=== PATIENT | female | born 1965 | race Caucasian/White ===

== ENCOUNTER 2019-12-27 12:52 | Outpatient (REF) | payer OTHER, SELFPAY ==
--- NOTE | 2019-12-27 | MM_ITS ---
EXAMINATION: MM SCREENING DIGITAL BREAST TOMOSYNTHESIS, BILATERAL CLINICAL INFORMATION: Screening. Asymptomatic. Family history breast cancer maternal grandmother. The lifetime risk of breast cancer based on the Tyrer-Cuzick Model is 14%. COMPARISON: Mammography: 12/18/2018, 07/08/2017, 06/07/2016 TECHNIQUE: Digital breast tomosynthesis is performed in both the craniocaudal and mediolateral oblique views along with computer-aided detection (CAD). Synthesized 2D images are generated from the tomosynthesis. FINDINGS: There are scattered areas of fibroglandular density (ACR BI-RADS breast composition Category b). There are no significant masses, abnormal calcifications, or other abnormalities. The axilla and skin contours are unremarkable. MM/MM tomosynthesis screening BI IMPRESSION: No significant changes from prior exams. ASSESSMENT: BI-RADS 1: Negative RECOMMENDATION: Routine annual mammography screening. This patient's information was entered into a reminder system with a target due date for their next mammogram.
== END 2019-12-27 12:53 | disposition home or self-care (01) ==
LOC: HO.MAMMO 12:52
PROVIDERS: Visit Provider Obstetrics & Gynecology
DX: Z12.31 Encounter for screening mammogram for malignant neoplasm of breast (principal)
CPT/HCPCS: 77063; 77067

== ENCOUNTER 2021-02-26 11:26 | Outpatient (REF) | payer OTHER, SELFPAY ==
--- NOTE | ~2021-02-26 | MM_ITS ---
EXAMINATION: MM SCREENING DIGITAL BREAST TOMOSYNTHESIS, BILATERAL CLINICAL INFORMATION: Screening. Asymptomatic. The lifetime risk of breast cancer based on the Tyrer-Cuzick Model is 16%. COMPARISON: Mammography: 12/27/2019, 12/18/2018, 07/08/2017 TECHNIQUE: Digital breast tomosynthesis is performed in both the craniocaudal and mediolateral oblique views along with computer-aided detection (CAD). Synthesized 2D images are generated from the tomosynthesis. FINDINGS: There are scattered areas of fibroglandular density (ACR BI-RADS breast composition Category b). There are no significant masses, abnormal calcifications, or other abnormalities. Parenchymal pattern is similar to prior exams. No significant changes. MM/MM tomosynthesis screening BI IMPRESSION: No mammographic evidence of malignancy. ASSESSMENT: BI-RADS 1: Negative RECOMMENDATION: Routine annual mammography screening. This patient's information was entered into a reminder system with a target due date for their next mammogram.
== END 2021-02-26 11:27 | disposition home or self-care (01) ==
LOC: HO.MAMMO 11:26
PROVIDERS: Visit Provider Obstetrics & Gynecology
DX: Z12.31 Encounter for screening mammogram for malignant neoplasm of breast (principal)
CPT/HCPCS: 77063; 77067

== ENCOUNTER 2022-03-03 11:25 | Outpatient (REF) | payer OTHER, SELFPAY ==
--- NOTE | ~2022-03-03 | MM_ITS ---
EXAMINATION: MM SCREENING DIGITAL BREAST TOMOSYNTHESIS, BILATERAL CLINICAL INFORMATION: Screening. Asymptomatic. The lifetime risk of breast cancer based on the Tyrer-Cuzick Model is 15%. COMPARISON: Mammography: 02/26/2021, 12/27/2019, 12/18/2018 TECHNIQUE: Digital breast tomosynthesis is performed in both the craniocaudal and mediolateral oblique views along with computer-aided detection (CAD). Synthesized 2D images are generated from the tomosynthesis. FINDINGS: There are scattered areas of fibroglandular density (ACR BI-RADS breast composition Category b). There are no significant masses, abnormal calcifications, or other abnormalities. Parenchymal pattern is similar to prior studies. There is no developing density or architectural abnormality. The axilla and skin contours are unremarkable. No significant changes. MM/MM tomosynthesis screening BI IMPRESSION: No mammographic evidence of malignancy. ASSESSMENT: BI-RADS 1: Negative RECOMMENDATION: Routine annual mammography screening. This patient's information was entered into a reminder system with a target due date for their next mammogram.
== END 2022-03-03 11:26 | disposition home or self-care (01) ==
LOC: HO.MAMMO 11:25
PROVIDERS: Visit Provider Obstetrics & Gynecology
DX: Z12.31 Encounter for screening mammogram for malignant neoplasm of breast (principal)
CPT/HCPCS: 77063; 77067

== ENCOUNTER 2023-03-04 11:40 | Outpatient (REF) | payer OTHER, SELFPAY ==
--- NOTE | ~2023-03-04 | MM_ITS ---
EXAMINATION: MM SCREENING DIGITAL BREAST TOMOSYNTHESIS, BILATERAL CLINICAL INFORMATION: Screening. Asymptomatic. COMPARISON: Mammography: 03/03/2022, 02/26/2021, 12/27/2019, 12/18/2018, dating back to 2014. TECHNIQUE: Digital breast tomosynthesis is performed in both the craniocaudal and mediolateral oblique views along with computer-aided detection (CAD). Synthesized 2D images are generated from the tomosynthesis. FINDINGS: The breasts are heterogeneously dense, which may obscure small masses (ACR BI-RADS breast composition Category c). Within the right breast, posterior one third, upper outer quadrant there are 2 abutting focal asymmetries which require diagnostic views as follows: Spot compression 3-D right MLO view, spot compression 3-D right CC view, and full-field 3-D right ML view. Ultrasound may be necessary as warranted. There are no suspicious findings in the left breast. No suspicious calcifications or masses in either breast. MM/MM tomosynthesis screening BI IMPRESSION: 2 abutting focal asymmetry posterior upper outer right breast, for which diagnostic views are recommended as detailed above. ASSESSMENT: BI-RADS BI-RADS 0 - Incomplete: Needs additional Imaging. RECOMMENDATION: 1. Additional views of the right breast. 2. Targeted ultrasound if warranted after review of the additional views. 3. Radiology department staff will contact the patient for additional imaging. Additional Imaging required
== END 2023-03-04 11:41 | disposition home or self-care (01) ==
LOC: HO.MAMMO 11:40
PROVIDERS: Visit Provider Obstetrics & Gynecology
DX: Z12.31 Encounter for screening mammogram for malignant neoplasm of breast (principal)
CPT/HCPCS: 77063; 77067

== ENCOUNTER → 2023-03-04 11:45 | Outpatient (BNV) | payer OTHER, SELFPAY | PROVIDERS: Visit Provider Radiology Diagnostic Radiology | DX: Z12.31 Encounter for screening mammogram for malignant neoplasm of breast (principal) | CPT/HCPCS: 77063; 77067 ==

== ENCOUNTER 2023-04-05 10:57 | Outpatient (REF) | payer OTHER, SELFPAY ==
--- NOTE | ~2023-04-05 | US_ITS ---
EXAMINATION: MM DIAGNOSTIC DIGITAL BREAST TOMOSYNTHESIS, RIGHT US BREAST LIMITED, RIGHT MAMMOGRAPHY: CLINICAL INFORMATION: Diagnostic for evaluation of 2 abutting focal asymmetries within the right breast, upper outer quadrant posterior one third. COMPARISON: Mammography: 03/04/2023, 03/03/2022, 02/26/2021, 12/27/2019, and dating back to 2014. TECHNIQUE: Digital right breast tomosynthesis is performed in the following views: Full-field right mediolateral view, and spot compression 3-D right MLO and right cc views x2. This was followed by diagnostic right breast ultrasound. FINDINGS: The breasts are heterogeneously dense, which may obscure small masses (ACR BI-RADS breast composition Category c). On additional views, the asymmetries in the posterior upper outer quadrant of the right breast appeared to largely dissipate, most consistent with superimposition artifact of normal overlapping breast tissues. This will be interrogated by ultrasound. No new mass, suspicious calcifications, or area of architectural distortion identified in the right breast. No skin or axillary abnormality. ULTRASOUND: CLINICAL INFORMATION: Diagnostic for evaluation of 2 abutting focal asymmetries within the right breast, upper outer quadrant posterior one third. COMPARISON: None TECHNIQUE: Targeted sonographic evaluation was performed using a high frequency linear transducer. Attention was given to the upper outer quadrant of the right breast. Selected archived documentation. FINDINGS: RIGHT BREAST: There is a mixture of fatty and fibroglandular tissue. No suspicious mass is seen. There is no pathologic acoustic shadowing. There is no cystic abnormality. There is no ultrasonographic correlate/abnormality in the upper outer quadrant of the right breast. US/US breast RT limited mamm only IMPRESSION: No persistent findings suspicious for malignancy. Benign findings right breast. 2 abutting focal asymmetries within the posterior right breast upper outer quadrant do not persist on diagnostic views or ultrasound. Only normal fibroglandular tissue is noted. Recommend the patient resume routine annual screening mammography to include both breasts. OVERALL ASSESSMENT: Mammography: BI-RADS 2 - Benign Findings Ultrasound: BI-RADS 2 - Benign Findings RECOMMENDATION: 1 year F/U Results were provided to the patient at time of visit by the technologist. This patient's information was entered into a reminder system with a target due date for their next mammogram.
== END 2023-04-05 10:58 | disposition home or self-care (01) ==
LOC: HO.MAMMO 10:57
PROVIDERS: PCP Obstetrics & Gynecology; Visit Provider Obstetrics & Gynecology
DX: R92.8 Other abnormal and inconclusive findings on diagnostic imaging of breast (principal)
CPT/HCPCS: 76642; 77061; 77065

== ENCOUNTER → 2023-04-05 11:00 | Outpatient (BNV) | payer OTHER, SELFPAY | PROVIDERS: PCP Obstetrics & Gynecology; Visit Provider Radiology Diagnostic Radiology | DX: R92.8 Other abnormal and inconclusive findings on diagnostic imaging of breast (principal) | CPT/HCPCS: 76642; 77061; 77065 ==

== ENCOUNTER 2024-03-09 11:41 | Outpatient (REF) | payer OTHER, SELFPAY ==
--- OUTSIDE RECORDS SUMMARY | 2024-03-09 12:01 | XMS_ITS | Continuity of Care Document ---
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 Name Role Phone Denise MORAN, Abdi Primary Care Physician Encounter [facility] NBR [id number] Date(s): 02/06/24 - 03/07/[address] [address]- Encounter Type: Triage Allergies, Adverse Reactions, Alerts Substance Criticality Severity Reaction Reaction Severity Status sulfa drugs rash Active Medications aspirin 81 mg oral delayed release tablet = 81 mg, By Mouth, Daily, # 90 tablet, 0 Refills, Maintenance, 02/04/24 12:04:00 PM EST, EC Tablet, [facility], Partial fill upon patient request if the prescription is for a schedule IIopioid drug., 150, cm, 02/04/24 11:31:00 EST, Height, 62.1, kg, 02/03/24 8:11:00 EST, Dry Weight Start Date: 02/04/24 Status: Ordered Quantity: 90.0 Unit: tablet Repeat number: 1 atorvastatin 80 mg oral tablet = 80 mg, By Mouth, Daily at bedtime, # 90 tablet, 0 Refills, Maintenance, 02/04/24 12:04:00 PM EST, Tablet, [facility], Partial fill upon patient request if the prescription is for a schedule II opioid drug., 150, cm, 02/04/24 11:31:00 EST, Height, 62.1, kg, 02/03/24 8:11:00 EST, Dry Weight Start Date: 02/04/24 Status: Ordered Quantity: 90.0 Unit: tablet Repeat number: 1 D3 By Mouth, Daily, 0 Refills, Maintenance, 03/06/24 9:16:00 AM EST, Partial fill upon patient request if the prescription is for a schedule II opioid drug. Start Date: 03/06/24 Status: Ordered Repeat number: 1 magnesium oxide 400 mg oral tablet 800 mg, 2, tablet, By Mouth, Daily, 0 Refills Start Date: 03/07/07 Status: Ordered Repeat number: 1 metoprolol 25 mg oral tablet, extended release 25 mg, 1, tablet, By Mouth, Daily, # 90 tablet, Refills 0, Tot. Refills 0, Maintenance, 02/04/24 12:05:00 PM EST, Route to Pharmacy Electronically, [facility], Partial fill upon patient request if the prescription is for a schedule II opioid drug., 150, cm, 02/04/24 11:31:00 EST, Height, 62.1, kg, 02/03/24 8:11:00 EST, Dry Weight Start Date: 02/04/24 Status: Ordered Quantity: 90.0 Unit: tablet Repeat number: 1 ticagrelor 90 mg oral tablet 1 tablet = 90 mg, By Mouth, 2 times a day, # 180 tablet, 0 Refills, Maintenance, 02/04/24 12:05:00 PM EST, Tablet, [facility], Partial fill upon patient request if the prescription is for a schedule II opioid drug., 150, cm, 02/04/24 11:31:00 EST, Height, 62.1, kg, 02/03/24 8:11:00 EST, Dry Weight Start Date: 02/04/24 Status: Ordered Quantity: 180.0 Unit: tablet Repeat number: 1 Vitamin B12 0 Refills, Maintenance, 03/06/24 9:16:00 AM EST, Partial fill upon patient request if the prescription is for a schedule II opioid drug. Start Date: 03/06/24 Status: Ordered Repeat number: 1 Vitamin C 100 mg oral tablet 100 mg, 1, tablet, By Mouth, Daily, 0 Refills Start Date: 03/07/07 Status: Ordered Repeat number: 1 Zinc 0 Refills, Maintenance, 03/06/24 9:16:00 AM EST, Partial fill upon patient request if the prescription is for a schedule II opioid drug. Start Date: 03/06/24 Status: Ordered Repeat number: 1 Problem List Condition Confirmation Course Effective Dates Status Health [facility] Informant Cholestanol Confirmed Active Social History Social History Type Response Smoking Status Smoker, current stat us unknown; Use: pt occasionally smokes <1 cigarette every so often entered on: 02/03/24 Sex Sex Representation Female (finding) Patient Care team information Care Team Personnel Name: Abdi Walker MD Position: [facility] Physician - Primary Care Member Role: PCP Address: [address] [place] [id number] Telecom: Name: Lucila Martinez RN Position: [facility] RN Member Role: Primary Care Nurse Care Team Related Persons Name: YELENA MILTON Name: ISRA VALENZUELA Insurance Providers Guarantor name: DAMIAN Health Plan Information #: 1 Payer: DAMIAN Member Number: NA Policy Number: NA Group Number: NA
== END 2024-03-09 11:42 | disposition home or self-care (01) ==
LOC: HO.MAMMO 11:41
PROVIDERS: PCP Internal Medicine; Visit Provider Internal Medicine
DX: Z12.31 Encounter for screening mammogram for malignant neoplasm of breast (principal)
CPT/HCPCS: 77063; 77067

== ENCOUNTER → 2024-03-09 11:45 | Outpatient (BNV) | payer OTHER, SELFPAY | PROVIDERS: PCP Internal Medicine; Visit Provider Internal Medicine | DX: Z12.31 Encounter for screening mammogram for malignant neoplasm of breast (principal) | CPT/HCPCS: 77063; 77067 ==